=== PATIENT | male | born 2000 | race Caucasian/White ===

== ENCOUNTER 2024-01-09 07:25 | Emergency (ER) | payer OTHER ==
[2024-01-09] MEDS: ONDANSETRON 4 MG ODT PO ONE (08:52)
[2024-01-09] MEDS: ALUMINUM HYD/MAG/SIMETHICONE 30 ML UDC PO ONE (08:53)
[2024-01-09 09:12] VITALS: BP 122/82; PULSE 66; RESP 16; TEMP 98; O2SAT 99
== END 2024-01-09 09:12 | disposition home or self-care (01) ==
LOC: MED 07:25
DX: R10.13 Epigastric pain (principal); R11.2 Nausea with vomiting, unspecified; R68.83 Chills (without fever)
CPT/HCPCS: 99283; Q0162